=== PATIENT | female | born 1960 | race Hispanic/Latino ===

== ENCOUNTER 2018-02-20 16:30 | Inpatient (IN) | payer MEDICARE ==
[2018-02-20 16:42] VITALS: O2SAT 98
--- NOTE | 2018-02-20 18:03 | C.PDOC ---
History Of Present Illness 57yo female, transferred in for admission after she was pre-screened in an outpatient facility for depression. Patient currently denies any suicidal or homicidal ideation. She has no medical complaints. Time Seen by Provider: 02/20/18 16:40 Chief Complaint (Nursing): Psychiatric Evaluation History/Exam Limitations: no limitations Onset/Duration Of Symptoms: Days Current Symptoms Are (Timing): Still Present Associated Symptoms: Depression Past Medical History Reviewed: Historical Data, Nursing Documentation, Vital Signs Vital Signs: Last Vital Signs Temp 98.3 F 02/27/18 06:36 Pulse 75 02/27/18 09:36 Resp 18 02/27/18 06:36 BP 118/74 02/27/18 09:36 Pulse Ox 98 02/25/18 06:00 - Medical History PMH: No Chronic Diseases Surgical History: No Surg Hx Family History: States: No Known Family Hx - Social History Hx Alcohol Use: Yes Hx Substance Use: No Review Of Systems Except As Marked, All Systems Reviewed And Found Negative. Constitutional: Negative for: Fever, Chills Cardiovascular: Negative for: Chest Pain Respiratory: Negative for: Shortness of Breath Gastrointestinal: Negative for: Abdominal Pain Psych: Positive for: Depression. Negative for: Suicidal ideation Physical Exam - Physical Exam Appears: Non-toxic Skin: Normal Color Head: Normacephalic Eye(s): bilateral: Normal Inspection Neck: Supple Chest: Symmetrical Cardiovascular: Rhythm Regular Respiratory: Normal Breath Sounds Gastrointestinal/Abdominal: Normal Exam, Soft, No Tenderness Back: Normal Inspection Extremity: Normal ROM Neurological/Psych: Oriented x3, Other (flat affect) ED Course And Treatment O2 Sat by Pulse Oximetry: 98 (RA) Pulse Ox Interpretation: Normal Medical Decision Making Medical Decision Makin patient admitted under Dr. Pinedo for suicidal ideation. Disposition Doctor Will See Patient In The: Hospital Counseled Patient/Family Regarding: Studies Performed, Diagnosis - Disposition Disposition: HOSPITALIZED Disposition Time: 06:30 Condition: GOOD - Clinical Impression Clinical Impression: Depression - Scribe Statement The provider has reviewed the documentation as recorded by the Sherice Castellon Provider Attestation: All medical record entries made by the Sherice were at my direction and personally dictated by me. I have reviewed the chart and agree that the record accurately reflects my personal performance of the history, physical exam, medical decision making, and the department course for this patient. I have also personally directed, reviewed, and agree with the discharge instructions and disposition.
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
--- NOTE | 2018-02-22 23:47 | PCM.PYCHPN ---
Psychiatric Progress Note - Psychiatric Progress Note Patient seen today, length of contact: 15 min Patient Chief Complaint: I was feeling depressed and suicidal.' Problems Identified/Issues Discussed: Patient seen and evaluated, chart reviewed and discussed with the nurse. Pt reports depressed mood, feelings of hopelessness and helplessness. She remained isolated and withdrawn, and confined to her room. She still reports withdrawal symptoms. She denies any AVH or any paranoia. Patient is compliant with medications and denies any side effects. Symptoms are improving but need more time to stabilize. Support and psychoeducation given. Medication Change: Yes Medical Record Reviewed: Yes Mental Status Examination - Cognitive Function Orientation: Person, Place, Situation, Time Memory: Intact Attention: WNL Concentration: Poor Association: WNL Fund of Knowledge: Poor - Mood Mood: Depressed, Anxious - Affect Affect: Broad, Constricted, Depressed - Speech Speech: Soft - Formal Thought Process Formal Thought Process: No Impairment - Suicidal Ideation Suicidal Ideation: No - Homicidal Ideation Homicidal Ideation: No Goal/Treatment Plan - Goal/Treatment Plan Need for Continued Stay: Severe depression anxiety, Severe functional impairment Progress Toward Problem(s) and Goals/Treatment Plan: Major depressive disorder recurrent severe without psychotic features Alcohol use disorder severe Alcohol withdrawal -Psychotherapy -Supportive therapy, group therapy, individual therapy -Atarax 25 mg PO Q6 prn -Wellbutrin 75 mg PO Daily -Trazodone 50 mg PO QHS prn -Ativan prn -Multivitamin/FA/Thiamine - Smoking Cessation Smoking Cessation Initiated: No
[2018-02-23] MEDS: Multiple Vitamins Tab PO SCH (10:29)
--- NOTE | 2018-02-23 15:51 | PCM.PYCHPN ---
Psychiatric Progress Note - Psychiatric Progress Note Patient seen today, length of contact: 15 min Patient Chief Complaint: "I am just here" Problems Identified/Issues Discussed: Patient seen, chart discussed and reviewed with the nurse. The patient was seen in treatment team meeting. The patient states that she is feeling depressed and still has thoughts of hurting herself. She states that she still has trouble sleeping. She states that her appetite is better since coming to the hospital. Symptoms are improving but needs more time to stabilize. Mental Status Examination - Cognitive Function Orientation: Person, Place, Situation, Time - Mood Mood: Depressed, Anxious - Affect Affect: Broad, Constricted, Depressed - Speech Speech: Appropriate - Formal Thought Process Formal Thought Process: No Impairment - Suicidal Ideation Suicidal Ideation: Yes - Homicidal Ideation Homicidal Ideation: No Goal/Treatment Plan - Goal/Treatment Plan Progress Toward Problem(s) and Goals/Treatment Plan: Psychotherapy, supportive therapy, group therapy, individual therapy Atarax 25 mg PO Q6 PRN Wellbutrin 75 mg PO daily Trazodone 50 mg PO PRN Ativan prn Multivitamin/FA/ Thiamine
--- NOTE | 2018-02-23 18:28 | PCM.BM ---
<DavidsonTorri - Last Filed: 02/23/18 18:26> Treatment Plan Problems - Problems identified on initial assessmt Depression Date Initiated: 02/20/18 Time Initiated: 21:00 Assessment reference: NA Status: Active Suicidal Ideations Date Initiated: 02/20/18 Time Initiated: 22:20 Assessment reference: NA Status: Active Treatment assets and liabiliti Patient Assests: cooperative, self-reliant, ADL independent, negotiates basic needs Patient Liabilities: live alone, financial problems, relationship conflicts, substance abuse, medical problems - Milieu Protocol Maintain good personal hygiene: daily Encourage regular showers, daily Remind patient to perform daily oral care, daily Assist patient to perform ADL's Conduct patient checks and document Observation sheet: Q15 minutes Maintain personal safety: every shift Educate patient to report safety concerns to staff, every shift Monitor environment for contraband/sharps Medication safety: Monitor for expected outcome, potential side effects: every shift, Assess barriers to learning: every shift, Assess readiness for medication education: every shift Milieu Narrative: Psychotherapy, supportive therapy, group therapy, individual therapy Atarax 25 mg PO Q6 PRN Wellbutrin 75 mg PO daily Trazodone 50 mg PO PRN Ativan prn Multivitamin/FA/ Thiamine Discharge/Continuing Care - Treatment Team Participation Patient/Family/SO Statement: Psychotherapy, supportive therapy, group therapy, individual therapy Atarax 25 mg PO Q6 PRN Wellbutrin 75 mg PO daily Trazodone 50 mg PO PRN Ativan prn Multivitamin/FA/ Thiamine <Nara Fox - Last Filed: 02/24/18 16:47> Family Contact Family involvement: Patient does not wish Family/SO involvement Family contact: Patient declines to allow family contact at present - Goals for Treatment Patient goals for treatment: " I want to be referred to a partial care program. " Discharge/Continuing Care - Education Needs Education Needs: Patient Medication, Patient Diagnosis/Disease Process, Patient Coping Skills, Patient Anger Management skills, Patient Placement options, Patient Community resources, Patient Activities of Daily Living - Discharge Discharge Criteria: Free of Suicidal thoughts, Normal sleep pattern, Ability to care for self, No longer exhibiting s/s of withdrawal, Reduction of target symptoms Discharge to:: Correction - Treatment Team Participation Discussed with Family/SO: No Was Patient/Family/SO present at Treatment Team Meeting: Yes
[2018-02-24] MEDS ORDERED: Pneumococcal 23-Valent Vaccine IM ONE (10:00)
[2018-02-24] MEDS: Multiple Vitamins Tab PO SCH (10:29)
--- NOTE | 2018-02-24 14:28 | PCM.PYCHPN ---
Psychiatric Progress Note - Psychiatric Progress Note Patient seen today, length of contact: 15 min Patient Chief Complaint: "I am ok" Problems Identified/Issues Discussed: Patient seen chart discussed and reviewed with nurse. The patient states that she still has depressed mood. She states that she slept better overnight. The patient admits to still having thoughts of suicide. She denies any audio hallucinations. She requested a nicotine patch as she feels she is withdrawing. Symptoms are improving but needs more time to stabilize. Mental Status Examination - Cognitive Function Orientation: Person, Place, Situation, Time - Mood Mood: Depressed, Anxious - Affect Affect: Broad, Constricted, Depressed - Speech Speech: Appropriate - Formal Thought Process Formal Thought Process: No Impairment - Suicidal Ideation Suicidal Ideation: Yes - Homicidal Ideation Homicidal Ideation: No Goal/Treatment Plan - Goal/Treatment Plan Progress Toward Problem(s) and Goals/Treatment Plan: Psychotherapy supportive therapy, group therapy, individual therapy Atarax 25 mg PO Q6 PRN Lexapro 5mg Trazodone 50 mg PO PRN Ativan prn Multivitamin/FA/ Thiamine Nicotine patch Encourage self care Encourage participation in groups All risks and benefits of medications discussed with the patient
[2018-02-25] MEDS: Multiple Vitamins Tab PO SCH (10:05)
--- NOTE | 2018-02-25 15:05 | PCM.PYCHPN ---
Psychiatric Progress Note - Psychiatric Progress Note Patient seen today, length of contact: 15 min Patient Chief Complaint: "I am fine" Problems Identified/Issues Discussed: Patient seen chart discussed and reviewed with nurse. Patient seen chart discussed and reviewed with nurse. The patient states that she still has depressed mood. She states that she slept better overnight. The patient admits to still having thoughts of suicide. She states that if she were to leave the hospital now she would go to the liquor store. Support and psychoeducation provided. The patient was encouraged to leave her room and interact with the other patients on the unit. Medication Change: No Medical Record Reviewed: Yes Mental Status Examination - Cognitive Function Orientation: Person, Place, Situation, Time Memory: Intact Attention: Poor - Mood Mood: Depressed, Anxious - Affect Affect: Broad, Constricted, Depressed - Speech Speech: Appropriate - Formal Thought Process Formal Thought Process: No Impairment - Suicidal Ideation Suicidal Ideation: Yes - Homicidal Ideation Homicidal Ideation: No Goal/Treatment Plan - Goal/Treatment Plan Progress Toward Problem(s) and Goals/Treatment Plan: Psychotherapy supportive therapy, group therapy, individual therapy Atarax 25 mg PO Q6 PRN Lexapro 5mg Trazodone 50 mg PO PRN Ativan prn Multivitamin/FA/ Thiamine Nicotine patch Encourage self care Encourage participation in groups All risks and benefits of medications discussed with the patient 15 min
--- NOTE | 2018-02-25 18:30 | RAD ---
Date of service: 02/25/2018 HISTORY: Discharge COMPARISON: No prior. TECHNIQUE: Chest PA and lateral FINDINGS: LUNGS: No active pulmonary disease. PLEURA: No significant pleural effusion identified. No pneumothorax apparent. CARDIOVASCULAR: Normal. OSSEOUS STRUCTURES: Solitary [place] kain incompletely visualized Thoracolumbar scoliosis. VISUALIZED UPPER ABDOMEN: Normal. OTHER FINDINGS: None. IMPRESSION: No active disease.
[2018-02-26 06:42] VITALS: RESP 18
[2018-02-26] MEDS: Multiple Vitamins Tab PO SCH (10:04)
--- NOTE | 2018-02-26 11:29 | CARD ---
APPROVED REPORT Date of service: 02/25/2018 EKG Measurement Heart [id number] <Conclusion> Normal sinus rhythm Normal ECG
--- NOTE | 2018-02-26 14:15 | PCM.PYCHPN ---
Psychiatric Progress Note - Psychiatric Progress Note Patient seen today, length of contact: 15 min Patient Chief Complaint: "I am fine" Problems Identified/Issues Discussed: Patient seen chart discussed and reviewed with nurse. Patient seen chart discussed and reviewed with nurse. The patient states that she still has depressed mood. She states that she slept better overnight. The patient admits to still having thoughts of suicide. She states that if she were to leave the hospital now she would go to the liquor store. Support and psychoeducation provided. The patient was encouraged to leave her room and interact with the other patients on the unit. Medication Change: Yes Medical Record Reviewed: Yes Mental Status Examination - Cognitive Function Orientation: Person, Place, Situation, Time Memory: Intact Attention: WNL Concentration: Poor Association: WNL Fund of Knowledge: Poor - Mood Mood: Depressed, Anxious - Affect Affect: Broad, Constricted, Depressed - Speech Speech: Soft - Formal Thought Process Formal Thought Process: No Impairment - Suicidal Ideation Suicidal Ideation: No - Homicidal Ideation Homicidal Ideation: No Goal/Treatment Plan - Goal/Treatment Plan Need for Continued Stay: Severe depression anxiety, Severe functional impairment Progress Toward Problem(s) and Goals/Treatment Plan: Psychotherapy supportive therapy, group therapy, individual therapy Atarax 25 mg PO Q6 PRN Lexapro 5mg Trazodone 50 mg PO PRN Ativan prn Multivitamin/FA/ Thiamine Nicotine patch Encourage self care Encourage participation in groups All risks and benefits of medications discussed with the patient 15 min
[2018-02-27 06:37] VITALS: TEMP 98.3
[2018-02-27] MEDS: Multiple Vitamins Tab PO SCH (09:10)
--- NOTE | 2018-02-27 09:14 | PCM.PYCHDC ---
Mental Status Examination - Mental Status Examination Orientation: Person Discharge Summary - Discharge Note Consultations:: List each consultation separately and include: 1. Reason for request. 2. Findings. 3. Follow-up Summary of Hospital Course include:: 1. Description of specific treatment plan utilized for patients during their course of treatmen. 2. Summarize the time- course for resolution of acute symptoms and/or regressed behaviors. 3. Describe issues identified and worked on during hospitalization. 4. Describe medication utilized. 5. Describe medical problems identified and treated. 6. Reassessment of suicide risk Summary of Hospital Course: She went to [facility] rehab. - Final Diagnosis (DSM 5) Condition upon Discharge: GOOD Disposition: HOME/ ROUTINE Follow-up Treatment Plan: Psychotherapy supportive therapy, group therapy, individual therapy Atarax 25 mg PO Q6 PRN Lexapro 5mg Trazodone 50 mg PO PRN Ativan prn Multivitamin/FA/ Thiamine Nicotine patch Encourage self care Encourage participation in groups All risks and benefits of medications discussed with the patient 15 min Prescriptions/Medication Reconciliation: Escitalopram [Lexapro] 10 mg PO DAILY #30 tab traZODone [Desyrel] 100 mg PO HS PRN #30 tab PRN Reason: Insomnia
[2018-02-27 09:37] VITALS: BP 118/74; PULSE 75
== END 2018-02-27 11:52 | disposition home or self-care (01) | DRG 885 ==
LOC: C.ER 16:30 → C.5E 16:40
PROVIDERS: ADMIT Psychiatry & Neurology Psychiatry; ATTEND Psychiatry & Neurology Psychiatry
PROC: HZ2ZZZZ Detoxification Services for Substance Abuse Treatment (ICD-10-PCS; principal; 2018-02-20)
PROC: HZ56ZZZ Individual Psychotherapy for Substance Abuse Treatment, Psychoeducation (ICD-10-PCS; 2018-02-20)
PROC: HZ59ZZZ Individual Psychotherapy for Substance Abuse Treatment, Supportive (ICD-10-PCS; 2018-02-20)
PROC: GZHZZZZ Group Psychotherapy (ICD-10-PCS; 2018-02-20)
PROC: GZ56ZZZ Individual Psychotherapy, Supportive (ICD-10-PCS; 2018-02-20)
DX: F33.2 Major depressive disorder, recurrent severe without psychotic features (principal); F10.230 Alcohol dependence with withdrawal, uncomplicated; R45.851 Suicidal ideations; Y90.9 Presence of alcohol in blood, level not specified; F41.8 Other specified anxiety disorders; G47.00 Insomnia, unspecified